=== PATIENT | male | born 1960 | race Caucasian/White ===

== ENCOUNTER 2023-08-21 02:00 | Emergency (ER) | payer MEDICARE, OTHER ==
[2023-08-21] MEDS ORDERED: Zofran 4 MG/2 ML VIAL IV ONE (02:47)
[2023-08-21] MEDS ORDERED: MORPHINE SULFATE 4 MG INJ IV ONE (02:47)
[2023-08-21 03:16] VITALS: TEMP 98.1
[2023-08-21] MEDS ORDERED: MORPHINE SULFATE 4 MG INJ ONE (03:19)
[2023-08-21] MEDS ORDERED: Zofran 4 MG/2 ML VIAL ONE (03:19)
[2023-08-21 03:20] LABS: Absolute Neutrophil Ct (ANC) 5.79 x10^3/uL (1.4-6.9); BASOPHIL % 0.7 % (0.0-0.4); Basophil (Absolute #) 0.06 x10^3/uL (0-0.4); Eosinophil % 1.9 % (0.00-5.0); Eosinophil (Absolute #) 0.15 x10^3/uL (0-0.5); Hematocrit 41.3 % (42-50); Hemoglobin 13.2 g/dL (12.5-18.0); IMMATURE GRAN # 0.03 x10^3u/L (0.00-0.03); IMMATURE GRAN % 0.4 % (0.00-0.4); Lymphocyte (Absolute #) 1.04 x10^3/uL (1.0-4.6); Lymphocytes % 12.9 % (24.0-44.0); Mean Cell Volume 92.8 fL (78-100); Mean Corpuscular Hemoglobin 29.7 pg (26-32); Mean Platelet Volume 9.1 fL (7.5-11.0); Monocytes % 12.4 % (0.0-12.0); Neutrophil % 71.7 % (36.0-66.0); Platelet Count 165 x10^3/uL (150-450); Red Blood Count 4.45 x10^6/uL (4.1-5.6); Red Cell Distribution Width 12.5 % (11.5-14.0); White Blood Count 8.1 x10^3/uL (4.0-10.5)
[2023-08-21 03:30] LABS: ALBUMIN 4.3 g/dL (3.5-5.0); ANION GAP 15.6 MEQ/L (5-15); BILIRUBIN,TOTAL 1.2 mg/dL (0.2-1.3); Calcium 9.3 mg/dL (8.4-10.2); Creatinine 1 0.69 mg/dL (0.66-1.25); EST GLOMERULAR FILTRATION RATE 104.6 ML/MIN; Potassium 4.2 mmol/L (3.5-5.1); Total Protein 7.7 g/dL (6.3-8.2)
[2023-08-21 03:55] LABS: Appearance Clear (Clear); Bacteria None Seen /HPF (None Seen); Bilirubin Negative (Negative); Blood Negative (Negative); Epithelial Cells None Seen /HPF (None Seen); Glucose, Urine 500 mg/dL (Negative); Hyaline Casts NONE SEEN /LPF (0-2); Ketones Negative (Negative); Leukocyte Esterase Negative (Negative); Nitrite Negative (Negative); Protein,Urine Dip Negative (Negative); RBC 0-2 /HPF (0-5); Urobilinogen 0.2 mg/dL (0.2); WBC 0-2 /HPF (0-5)
[2023-08-21 04:04] LABS: ADD URINE CULTURE? NO (NO)
[2023-08-21 04:40] VITALS: RESP 14
[2023-08-21 06:26] VITALS: BP 122/67; PULSE 68; O2SAT 93
--- NOTE | 2023-08-21 06:40 | ERPHSYRPT ---
- History of Present Illness Time Seen by Provider: 08/21/23 02:46 Historian: patient Exam Limitations: no limitations Patient Subjective Stated Complaint: pt states he hasnt had a bm in a few days and pressure and pain in his lower abd Triage Nursing Assessment: pt alert and oriented. answers questions approp. pt ambulates into room with slow steady gait. respirations nonlabored. skin warm and dry. abd tender in lower quads. bowel sounds present x4. Physician History: 63 years old male with history of coronary artery disease status post stenting, peripheral vascular disease with aortobifemoral stenting on 08/19 at [facility] by Dr. Palmer, discharge yesterday afternoon presented in the ER with moderate to severe lower abdominal pain with some distention. Patient reports he feels as if he needs to go have a bowel movement but cannot. Also having some difficulty urination. Denies any nausea or vomiting. No swelling in the groins at the site of incisions. No lower extremity pain. Denies having any dizziness or lightheadedness. No chest pain palpitations or shortness of breath Allergies/Adverse Reactions: No Known Drug Allergies Allergy (Verified 08/21/23 02:59) Home Medications: Unobtainable 08/21/23 [History] Hx Tetanus, Diphtheria Vaccination/Date Given: Yes Hx Influenza Vaccination/Date Given: Yes Hx Pneumococcal Vaccination/Date Given: No Immunizations Up to Date: No Travel Risk - International Travel Have you traveled outside of the country in past 3 weeks: No - Coronavirus Screening Are you exhibiting any of the following symptoms?: No Close contact with a COVID-19 positive Pt in past 14-21 Days: No - Vaccine Status Have you recieved a Covid-19 vaccination: Yes Social Worker Health Services: [facility] - Vaccination Dates Date of 2cond Vaccination (if applicable): na - Review of Systems Constitutional: No Symptoms Eyes: No Symptoms Ears, Nose, & Throat: No Symptoms Respiratory: No Symptoms Cardiac: No Symptoms Abdominal/Gastrointestinal: Abdominal Pain Genitourinary Symptoms: Urinary Retention Musculoskeletal: No Symptoms Skin: No Symptoms Neurological: No Symptoms Endocrine: No Symptoms Hematologic/Lymphatic: No Symptoms - Past Medical History Cardiac History: Coronary Artery Disease, High Cholesterol, Hypertension, Myocardial Infarction ([place]), Peripheral Vascular Disease Respiratory History: COPD Endocrine Medical History: Diabetes Type II - Past Surgical History Past Surgical History: Yes Cardiac: Cardiac Catheterization, Cardiac Stent, Vascular Surgery Other Surgical History: back surgery, ulcer - Social History Smoking Status: Former smoker Exposure to second hand smoke: No Drug Use: none Patient Lives Alone: No - Nursing Vital Signs Nursing Vital Signs: Initial Vital Signs Temperature 98.1 F 08/21/23 02:32 Pulse Rate 81 08/21/23 02:32 Respiratory Rate 18 08/21/23 02:32 Blood Pressure 129/71 08/21/23 02:32 O2 Sat by Pulse Oximetry 93 L 08/21/23 02:32 Pain Scale Pain Intensity 6 - Physical Exam General Appearance: no apparent distress, alert Eye Exam: PERRL/EOMI Ears, Nose, Throat Exam: normal ENT inspection Neck Exam: normal inspection, non-tender, supple, full range of motion Respiratory Exam: normal breath sounds, lungs clear Cardiovascular Exam: regular rate/rhythm, normal heart sounds Gastrointestinal/Abdomen Exam: normal bowel sounds, tenderness (Lower abdomen), distention, guarding Back Exam: normal inspection, normal range of motion Extremity Exam: normal inspection, normal range of motion Neurologic Exam: alert, oriented x 3, cooperative SpO2 Interpretation: normal SpO2: 93 O2 Delivery: Room Air Ordered Tests: Active Orders 24 hr Category Date Time Status Lacy [Catheter-Living[place] Lacy] STAT Care 08/21/23 03:48 Completed IV Insertion STAT Care 08/21/23 02:47 Completed NPO (ED) STAT Care 08/21/23 02:47 Completed CTA ABD/PEL W FEM RUNOFF [CT] Stat Exams 08/21/23 02:52 Ordered CBC W DIFF Stat Lab 08/21/23 03:16 Completed CMP Stat Lab 08/21/23 03:16 Completed Lactic Acid Stat Lab 08/21/23 03:09 Completed UA W/RFX UR CULTURE Stat Lab 08/21/23 03:46 Completed Medication Summary Discontinued Medications Generic Name Dose Route Start Last Admin Trade Name Freq PRN Reason Stop Dose Admin Morphine Sulfate 4 mg 08/21/23 02:47 08/21/23 03:20 Morphine Sulfate 4 Mg/Ml Injection IV 08/21/23 02:48 4 mg STAT ONE Administration Morphine Sulfate Confirm 08/21/23 03:19 Morphine Sulfate 4 Mg/Ml Injection Administered 08/21/23 03:20 Dose 4 mg .ROUTE .[facility] ONE Ondansetron HCl 4 mg 08/21/23 02:47 08/21/23 03:20 Ondansetron Hcl 4 Mg/2 Ml Vial IV 08/21/23 02:48 4 mg STAT ONE Administration Ondansetron HCl Confirm 08/21/23 03:19 Ondansetron Hcl 4 Mg/2 Ml Vial Administered 08/21/23 03:20 Dose 4 mg .ROUTE .STK-MED ONE Lab/Rad Data: Laboratory Result Diagrams 08/21/23 03:16 08/21/23 03:16 Laboratory Results 08/21/23 08/21/23 08/21/23 Range/Units 03:46 03:16 03:16 WBC 8.1 (4.0-10.5) x10^3/uL RBC 4.45 (4.1-5.6) x10^6/uL Hgb 13.2 (12.5-18.0) g/dL Hct 41.3 L (42-50) % MCV 92.8 (78-100) fL MCH 29.7 (26-32) pg MCHC 32.0 (32-36) g/dL RDW 12.5 (11.5-14.0) % Plt Count 165 (150-450) x10^3/uL MPV 9.1 (7.5-11.0) fL Gran % 71.7 H (36.0-66.0) % Immature Gran % (Auto) 0.4 (0.00-0.4) % Nucleat RBC Rel Count 0.0 (0.00-0.1) % Eos # (Auto) 0.15 (0-0.5) x10^3/uL Immature Gran # (Auto) 0.03 (0.00-0.03) x10^3u/L Absolute Lymphs (auto) 1.04 (1.0-4.6) x10^3/uL Absolute Monos (auto) 1.00 (0.0-1.3) x10^3/uL Absolute Nucleated RBC 0.00 (0.00-0.01) x10^3u/L Lymphocytes % 12.9 L (24.0-44.0) % Monocytes % 12.4 H (0.0-12.0) % Eosinophils % 1.9 (0.00-5.0) % Basophils % 0.7 (0.0-0.4) % Absolute Granulocytes 5.79 (1.4-6.9) x10^3/uL Basophils # 0.06 (0-0.4) x10^3/uL Sodium 134 L (137-145) mmol/L Potassium 4.2 (3.5-5.1) mmol/L Chloride 100 (98-107) mmol/L Carbon Dioxide 22 (22-30) mmol/L Anion Gap 15.6 H (5-15) MEQ/L BUN 18 (9-20) mg/dL Creatinine 0.69 (0.66-1.25) mg/dL Estimated GFR 104.6 ML/MIN Glucose 164 H (74-106) mg/dL Lactic Acid (0.4-2.0) Calcium 9.3 (8.4-10.2) mg/dL Total Bilirubin 1.20 (0.2-1.3) mg/dL AST 43 (17-59) U/L ALT 34 (0-50) U/L Alkaline Phosphatase 55 (38-126) U/L Serum Total Protein 7.7 (6.3-8.2) g/dL Albumin 4.3 (3.5-5.0) g/dL Urine Color Yellow (Yellow) Urine Appearance Clear (Clear) Urine pH 6.0 (4.6-8.0) Ur Specific [place] 1.010 (1.005-1.030) Urine Protein Negative (Negative) Urine Glucose (UA) 500 A (Negative) mg/dL Urine Ketones Negative (Negative) Urine Blood Negative (Negative) Urine Nitrite Negative (Negative) Urine Bilirubin Negative (Negative) Urine Urobilinogen 0.2 (0.2) mg/dL Ur Leukocyte Esterase Negative (Negative) U Hyaline Cast (Auto) NONE SEEN (0-2) /LPF Urine Microscopic RBC 0-2 (0-5) /HPF Urine Microscopic WBC 0-2 (0-5) /HPF Ur Epithelial Cells None Seen (None Seen) /HPF Urine Bacteria None Seen (None Seen) /HPF Urine Culture Reflexed NO (NO) 08/21/23 Range/Units 03:09 WBC (4.0-10.5) x10^3/uL RBC (4.1-5.6) x10^6/uL Hgb (12.5-18.0) g/dL Hct (42-50) % MCV (78-100) fL MCH (26-32) pg MCHC (32-36) g/dL RDW (11.5-14.0) % Plt Count (150-450) x10^3/uL MPV (7.5-11.0) fL Gran % (36.0-66.0) % Immature Gran % (Auto) (0.00-0.4) % Nucleat RBC Rel Count (0.00-0.1) % Eos # (Auto) (0-0.5) x10^3/uL Immature Gran # (Auto) (0.00-0.03) x10^3u/L Absolute Lymphs (auto) (1.0-4.6) x10^3/uL Absolute Monos (auto) (0.0-1.3) x10^3/uL Absolute Nucleated RBC (0.00-0.01) x10^3u/L Lymphocytes % (24.0-44.0) % Monocytes % (0.0-12.0) % Eosinophils % (0.00-5.0) % Basophils % (0.0-0.4) % Absolute Granulocytes (1.4-6.9) x10^3/uL Basophils # (0-0.4) x10^3/uL Sodium (137-145) mmol/L Potassium (3.5-5.1) mmol/L Chloride (98-107) mmol/L Carbon Dioxide (22-30) mmol/L Anion Gap (5-15) MEQ/L BUN (9-20) mg/dL Creatinine (0.66-1.25) mg/dL Estimated GFR ML/MIN Glucose (74-106) mg/dL Lactic Acid 1.1 (0.4-2.0) Calcium (8.4-10.2) mg/dL Total Bilirubin (0.2-1.3) mg/dL AST (17-59) U/L ALT (0-50) U/L Alkaline Phosphatase (38-126) U/L Serum Total Protein (6.3-8.2) g/dL Albumin (3.5-5.0) g/dL Urine Color (Yellow) Urine Appearance (Clear) Urine pH (4.6-8.0) Ur Specific [place] (1.005-1.030) Urine Protein (Negative) Urine Glucose (UA) (Negative) mg/dL Urine Ketones (Negative) Urine Blood (Negative) Urine Nitrite (Negative) Urine Bilirubin (Negative) Urine Urobilinogen (0.2) mg/dL Ur Leukocyte Esterase (Negative) U Hyaline Cast (Auto) (0-2) /LPF Urine Microscopic RBC (0-5) /HPF Urine Microscopic WBC (0-5) /HPF Ur Epithelial Cells (None Seen) /HPF Urine Bacteria (None Seen) /HPF Urine Culture Reflexed (NO) - Progress Progress: improved, re-examined Progress Note: 08/21/23 06:37 63 years old male with history of coronary artery disease status post stenting, peripheral vascular disease with aortobifemoral stenting on 08/19 at [facility] by Dr. Palmer, discharge yesterday afternoon presented in the ER with moderate to severe lower abdominal pain with some distention. Patient reports he feels as if he needs to go have a bowel movement but cannot. Also having some difficulty urination. Denies any nausea or vomiting. No swelling in the groins at the site of incisions. No lower extremity pain. Denies having any dizziness or lightheadedness. No chest pain palpitations or shortness of breath Patient is in moderate distress. He is given morphine for symptomatic relief. Distal pulses are dopplerable in both lower extremities. Cap refill symmetrical and around 3 seconds. Lower abdominal distention, Lacy catheter is placed and with initial drain of 1700 cc followed by another 1000 cc. Baseline labs are obtained which are unremarkable CBC and chemistries and no UTI. I have initially ordered CTA abdomen pelvis with femoral runoff but after placing catheter patient symptoms are all of a sudden resolved and he is ambulated in the ER without any limitation. I have tried to get hold of Dr. Vela but could not. Will leave Lacy catheter in at this urinary retention and recommended outpatient primary care follow-up and also follow-up appointment with vascular surgery. Discussed signs symptoms of worsening needing return to ER which he seems understanding. Stable for discharge. Counseled pt/family regarding: lab results, diagnosis, need for follow-up Medical Desision Making - Independent Historian Additional History obtained from: Child - Diagnostic Testing Diagnostic test were ordered, analyzed, and reviewed by me: Yes - Departure Departure Disposition: Home Clinical Impression: Postoperative urinary retention Condition: Stable Critical Care Time: No Referrals: WENCESLAO BORRERO MD [Primary Care Provider] - Follow up with PCP 1 day ROBERTO VELA [COURTESY STAFF] - Follow up/PCP as directed (Call in 1 day for reevaluation appointment) Instructions: Severe Abdominal Pain, Adult (DC), Urinary Retention (DC) Additional Instructions: Take Tylenol as needed. Follow-up with your primary care and vascular surgeon for reevaluation. Return to ER for difficulty urination or if having abdominal pain/vomiting etc.
== END 2023-08-21 06:48 | disposition home or self-care (01) ==
LOC: ED 02:00
DX: N99.89 Other postprocedural complications and disorders of genitourinary system (principal); R33.8 Other retention of urine; R10.30 Lower abdominal pain, unspecified; E78.5 Hyperlipidemia, unspecified; I10 Essential (primary) hypertension; E11.9 Type 2 diabetes mellitus without complications
CPT/HCPCS: 36000; 36415; 51702; 80053; 81001; 83605; 85025; 96374; 99284; J2270; J2405

== ENCOUNTER 2024-10-02 10:50 | Emergency (ER) | payer MEDICARE ==
--- NOTE | 2024-10-02 10:54 | ERPHSYRPT ---
- History of Present Illness Time Seen by Provider: 10/02/24 10:54 Source: patient, family Exam Limitations: no limitations Physician History: This is a 64-year-old white male patient of Dr. Delgado (PCP), Dr. Smith (customer program manager), Dr. Menezes (vascular surgery) who presents to the emergency department by private vehicle secondary to sudden onset of right lower extremity aching cramping pain with numbness that began approximately 10 AM. Patient was carrying boxes when the onset of symptoms came on. Patient has a history of right lower extremity vascular stents. In addition he has coronary disease and has a cardiac stent in place. Patient is on Plavix but not aspirin. He has a history of hypertension, hyperlipidemia, peripheral vascular disease and diabetes. He denies chest pain and he denies shortness of breath. Occurred: just prior to arrival Quality: aching, cramping Severity of Pain-Max: moderate Severity of Pain-Current: moderate Lower Extremities Pain: leg: right (Lower), thigh: right, foot: right (Lower), ankle: right Modifying Factors: Improves With: movement Associated Symptoms: other (Presents with ambulation) Allergies/Adverse Reactions: No Known Drug Allergies Allergy (Verified 10/02/24 10:54) Home Medications: Albuterol 2.5 mg/3 ml Neb [Proventil 2.5 mg/3 ml Neb] 2.5 mg IH Q6H PRN PRN 10/02/24 [History] Albuterol Sulfate [Proair Respiclick] 90 mcg IH Q6H PRN PRN 10/02/24 [History] Blood-Glucose Meter [Accu-Chek Guide Me Glucose Mtr] 1 applic IJ DAILY 10/02/24 [History] Celecoxib 100 mg [celeBREX 100 MG] 200 mg PO DAILY 10/02/24 [History] Clobetasol Propionate/Emoll [Clobetasol Emollient 0.05% Crm] 15 gm TP BID 10/02/24 [History] Clopidogrel Bisulfate [Clopidogrel] 75 mg PO DAILY 10/02/24 [History] Cyclobenzaprine HCl 10 mg [Cyclobenzaprine 10 MG] 10 mg PO DAILY PRN PRN 10/02/24 [History] Empagliflozin [Jardiance] 10 mg PO DAILY 10/02/24 [History] Evolocumab [Repatha Sureclick] 140 mg SQ UD 10/02/24 [History] Famotidine 20 mg PO DAILY 10/02/24 [History] Glimepiride 4 mg [Amaryl 4 mg] 4 mg PO DAILY 10/02/24 [History] Levothyroxine Sodium 75 Mcg [Synthroid 75 Mcg] 75 mcg PO DAILY 10/02/24 [History] Lisinopril 10 mg [Zestril 10 MG] 10 mg PO BID 10/02/24 [History] Magnesium Oxide 400 mg [Mag-Ox 400] 400 mg PO BID 10/02/24 [History] Metformin HCl [Metformin ER Osmotic] 1 tab PO BID 10/02/24 [History] Metoprolol Succinate 50 mg [Toprol Xl 50 MG] 50 mg PO DAILY 10/02/24 [History] Nitroglycerin 0.4 mg (Ed) [Nitrostat 0.4 MG (ED)] 0.4 mg SL DAILY PRN PRN 10/02/24 [History] Ranolazine 500 MG [Ranexa 500 MG] 500 mg PO BID 10/02/24 [History] Tamsulosin HCl 0.4 mg [Flomax 0.4 MG] 0.4 mg PO DAILY 10/02/24 [History] Hx Tetanus, Diphtheria Vaccination/Date Given: Yes Hx Influenza Vaccination/Date Given: Yes Hx Pneumococcal Vaccination/Date Given: No Travel Risk - International Travel Have you traveled outside of the country in past 3 weeks: No - Emerging Infectious Disease Are you exhibiting symptoms associated with any current EIDs: No - Review of Systems Constitutional: No Symptoms Eyes: No Symptoms Ears, Nose, & Throat: No Symptoms Respiratory: No Symptoms Cardiac: No Symptoms Abdominal/Gastrointestinal: No Symptoms Genitourinary Symptoms: No Symptoms Musculoskeletal: Other (Cramping and aching right lower extremity from the thigh distally) Skin: Other (Chronic venous stasis skin and changes.) Neurological: Parasthesia Psychological: No Symptoms Endocrine: No Symptoms Hematologic/Lymphatic: No Symptoms Immunological/Allergic: No Symptoms All Other Systems: Reviewed and Negative - Past Medical History Pertinent Past Medical History: Yes Cardiac History: Coronary Artery Disease, High Cholesterol, Hypertension, Myocardial Infarction ([place]), Peripheral Vascular Disease Respiratory History: COPD Endocrine Medical History: Diabetes Type II - Past Surgical History Past Surgical History: Yes Cardiac: Cardiac Catheterization, Cardiac Stent, Vascular Surgery Other Surgical History: back surgery, ulcer - Social History Smoking Status: Former smoker Exposure to second hand smoke: No Drug Use: none Patient Lives Alone: No - Nursing Vital Signs Nursing Vital Signs: Initial Vital Signs Pulse Rate 77 10/02/24 10:51 Respiratory Rate 15 10/02/24 10:51 Blood Pressure 176/88 10/02/24 10:51 O2 Sat by Pulse Oximetry 97 10/02/24 10:51 Pain Scale Pain Intensity 0 - Physical Exam General Appearance: no apparent distress, alert, anxiety, obese Eyes, Ears, Nose, Throat Exam: normal ENT inspection, moist mucous membranes Neck Exam: normal inspection, non-tender, supple, full range of motion Cardiovascular/Respiratory Exam: chest non-tender, normal breath sounds, regular rate/rhythm, heart sounds normal, no ecchymosis, no respiratory distress Gastrointestinal/Abdominal Exam: non-tender Back Exam: normal inspection, normal range of motion, No CVA tenderness, No vertebral tenderness Hips Exam: bilateral: non-tender, normal inspection, normal range of motion, no evidence of injury Legs Exam: right leg: soft tissue tenderness, left leg: non-tender, normal inspection, bilateral leg: normal range of motion, no evidence of injury Knees Exam: bilateral knee: non-tender, normal inspection, normal range of motion, no evidence of injury Ankle Exam: right ankle: soft tissue tenderness, left ankle: non-tender, normal inspection, bilateral ankle: normal range of motion, no evidence of injury Foot Exam: right foot: soft tissue tenderness, other (No dopplerable pedal pulses on the right. Dopplerable pedal pulses on the left), left foot: non- tender, bilateral foot: normal inspection, normal range of motion, no evidence of injury Neuro/Tendon Exam: normal motor functions, normal tendon functions, responds to pain Mental Status Exam: alert, oriented x 3, cooperative Skin Exam: other (Right lower extremity from approximately the mid tibial level distally is cooler on the right than the left side) SpO2 Interpretation: normal O2 Delivery: Room Air - Course Nursing assessment & vital signs reviewed: Yes Ordered Tests: Active Orders 24 hr Category Date Time Status IV Insertion STAT Care 10/02/24 12:33 Active ARTERIAL UNILAT/LTD LOWER EXT [US] Stat Exams 10/02/24 11:19 Completed CTA ABD/PEL W FEM RUNOFF [CT] Stat Exams 10/02/24 12:36 Completed CBC W DIFF Stat Lab 10/02/24 12:49 Completed CMP Stat Lab 10/02/24 12:49 Completed PROTIME WITH INR Stat Lab 10/02/24 13:00 Completed PTT Stat Lab 10/02/24 13:00 Completed Medication Summary Generic Name Dose Route Start Last Admin Trade Name Freq PRN Reason Stop Dose Admin Sodium Chloride 1,000 mls @ 100 mls/hr 10/02/24 12:45 10/02/24 12:36 Sodium Chloride 0.9% 1000 Ml IV 11/01/24 12:44 100 mls/hr .Q10H DIAMOND Administration Discontinued Medications Generic Name Dose Route Start Last Admin Trade Name Freq PRN Reason Stop Dose Admin Heparin Sodium (Beef Lung) 5,000 unit 10/02/24 12:46 10/02/24 13:15 Heparin 5000 Units/0.5 Ml 5,000 Unit/0.5 Ml Syr IV 10/02/24 12:47 5,000 unit STAT ONE Administration Heparin Sodium (Beef Lung) Confirm 10/02/24 13:14 Heparin 5000 Units/0.5 Ml 5,000 Unit/0.5 Ml Syr Administered 10/02/24 13:15 Dose 5,000 unit .ROUTE .[facility] ONE Lab/Rad Data: Laboratory Result Diagrams 10/02/24 12:49 10/02/24 12:49 Laboratory Results 10/02/24 10/02/24 10/02/24 Range/Units 13:00 12:49 12:49 WBC 7.7 (4.23-9.07) x10^3/uL RBC 4.99 (4.63-6.08) x10^6/uL Hgb 15.0 (13.7-17.5) g/dL Hct 43.8 (40.1-51.0) % MCV 87.8 (79.0-92.2) fL MCH 30.1 (25.7-32.2) pg MCHC 34.2 (32.3-36.5) g/dL RDW 12.5 (11.6-14.4) % Plt Count 157 L (163-337) x10^3/uL MPV 8.9 L (9.4-12.4) fL Gran % 75.8 H (34.0-67.9) % Immature Gran % (Auto) 0.5 H (0.001-0.429) % Nucleat RBC Rel Count 0.0 (0.00-0.2) % Eos # (Auto) 0.15 (0.04-0.54) x10^3/uL Immature Gran # (Auto) 0.04 H (0.001-0.031) x10^3u/L Absolute Lymphs (auto) 0.98 L (1.32-3.57) x10^3/uL Absolute Monos (auto) 0.64 (0.30-0.82) x10^3/uL Absolute Nucleated RBC 0.00 (0.00-0.012) x10^3u/L Lymphocytes % 12.7 L (21.8-53.1) % Monocytes % 8.3 (5.3-12.2) % Eosinophils % 1.9 (0.8-7.0) % Basophils % 0.8 (0.2-1.2) % Absolute Granulocytes 5.86 H (1.78-5.38) x10^3/uL Basophils # 0.06 (0.01-0.08) x10^3/uL PT 10.7 (9.4-12.5) SECONDS INR 0.98 (0.8-3.0) APTT 23.6 L (25.1-36.5) SECONDS Sodium 138 (135-145) mmol/L Potassium 4.5 (3.5-5.1) mmol/L Chloride 105 (98-107) mmol/L Carbon Dioxide 23 (22-30) mmol/L Anion Gap 14.5 (5-15) MEQ/L BUN 22 H (9-20) mg/dL Creatinine 0.70 (0.66-1.25) mg/dL Estimated GFR 103.5 ML/MIN Glucose 112 H (74-106) mg/dL Calcium 9.9 (8.4-10.2) mg/dL Total Bilirubin 0.50 (0.2-1.3) mg/dL AST 43 (17-59) U/L ALT 55 H (0-50) U/L Alkaline Phosphatase 68 (38-126) U/L Serum Total Protein 7.9 (6.3-8.2) g/dL Albumin 4.8 (3.5-5.0) g/dL - Progress Progress: unchanged, pain not gone completely Progress Note: 10/02/24 11:30 My medical decision making and the assignment of low to moderate complexity of this patient's medical issue today is based on review of the patient's past medical history, review the patient's medication list, reviewed patient drug allergy list, history present illness and physical findings on examination. The workup in this patient includes arterial ultrasound right lower extremity. Differential diagnosis includes but is not limited to acute ischemic limb, arterial insufficiency right limb 10/02/24 12:[address] Menezes, the patient's vascular surgeon. Dr. Menezes explained to me that in 2022 the patient underwent aortic stent placement. Dr. Menezes no longer performs lower extremity peripheral vascular interventions. He sends his patients to . He recommends me ordering a CTA of the abdomen pelvis with bilateral runoff. The radiologist interpreted the ultrasound/arterial unilateral right lower extremity study. The impression states new finding for no arterial flow throughout the right lower extremity. Suspect occlusion and more proximal pelvic vessels. 10/02/24 13:58 I requested and reviewed outside hide operative note on this patient that was performed on 08/19/[address] Fausto Palmer. Procedure performed is open exposure of right common femoral artery for delivery of endovascular prosthesis by groin incision, open exposure left common femoral artery for delivery of endovascular prosthesis by groin incision, placement of aortobiiliac [employer] Endurant 2 endograft for repair of abdominal aortic aneurysm. 10/02/24 15:20 The CTA of the abdomen pelvis with bilateral runoff was interpreted by the radiologist and I reviewed the impression. The impression states patent aortobiiliac stents. Right leg runoff demonstrates new total occlusion at the origin of the superficial femoral artery. No contrast to the trifurcation vessels. Left leg runoff minimal/mild scattered arteriosclerotic disease with focal less than 50% stenosis. 10/02/24 16:18 I interpreted the patient's laboratory data results. Based on the laboratory data results the patient does not have an acute or emergent medical issue. I spoke with [facility] vascular surgeon Dr. Montalvo. I reviewed the patient history, presenting complaint, physical findings and results of our workup. He recommends an additional 2500 units of intravenous heparin. He wants urgent transfer to [facility] emergency department. He accepts the patient in transfer Counseled pt/family regarding: diagnosis, rad results Medical Desision Making - Independent Historian Additional History obtained from: Spouse, Family - Diagnostic Testing Diagnostic test were ordered, analyzed, and reviewed by me: Yes Radiological Interpretation: Reviewed by me, Teleradiologist Report - Risk of complications The pt has a high risk of morbidity or mortality based on: Decision regarding hospitilization or escalation of hosp level of care - Departure Departure Disposition: Transfer Clinical Impression: Acute lower extremity ischemia Condition: Stable Critical Care Time: Yes Critical Care Time(excluding separately billable procedures): Critical 30-74 mi ns (55) Referrals: WENCESLAO DELGADO MD [Primary Care Provider] - Follow up/PCP as directed
[2024-10-02 11:06] VITALS: TEMP 97.7
--- NOTE | 2024-10-02 12:26 | XRAY ---
Indication: Right calf/foot numbness and pain. No pulse. Two-dimensional sonogram and color Doppler imaging major arteries right leg performed. Comparison: November 23, 2023 There is now faint attenuated flow in the common femoral artery. No flow in the remaining visualized deep femoral, superficial femoral, popliteal, posterior tibial, and dorsal pedal arteries. Impression: New finding for no arterial flow throughout right leg. Suspect occlusion in more proximal pelvic vessels. Comment: Preliminary report was given to ordering clinician.
[2024-10-02] MEDS: Sodium Chloride 0.9% 1000 ML 1,000 ML IV SCH (12:36)
[2024-10-02] MEDS ORDERED: Sodium Chloride 0.9% 1000 ML 1,000 ML ONE (12:36)
[2024-10-02 12:50] LABS: Absolute Neutrophil Ct (ANC) 5.86 x10^3/uL (1.78-5.38); BASOPHIL % 0.8 % (0.2-1.2); Basophil (Absolute #) 0.06 x10^3/uL (0.01-0.08); Eosinophil % 1.9 % (0.8-7.0); Eosinophil (Absolute #) 0.15 x10^3/uL (0.04-0.54); Hematocrit 43.8 % (40.1-51.0); IMMATURE GRAN # 0.04 x10^3u/L (0.001-0.031); IMMATURE GRAN % 0.5 % (0.001-0.429); Lymphocyte (Absolute #) 0.98 x10^3/uL (1.32-3.57); Lymphocytes % 12.7 % (21.8-53.1); Mean Cell Volume 87.8 fL (79.0-92.2); Mean Corpuscular Hemoglobin 30.1 pg (25.7-32.2); Mean Corpuscular Hgb Concent. 34.2 g/dL (32.3-36.5); Mean Platelet Volume 8.9 fL (9.4-12.4); Monocyte (Absolute #) 0.64 x10^3/uL (0.30-0.82); Monocytes % 8.3 % (5.3-12.2); Neutrophil % 75.8 % (34.0-67.9); Platelet Count 157 x10^3/uL (163-337); Red Blood Count 4.99 x10^6/uL (4.63-6.08); Red Cell Distribution Width 12.5 % (11.6-14.4); White Blood Count 7.7 x10^3/uL (4.23-9.07)
[2024-10-02 13:09] LABS: ALBUMIN 4.8 g/dL (3.5-5.0); ANION GAP 14.5 MEQ/L (5-15); BILIRUBIN,TOTAL 0.5 mg/dL (0.2-1.3); Calcium 9.9 mg/dL (8.4-10.2); Creatinine 1 0.7 mg/dL (0.66-1.25); EST GLOMERULAR FILTRATION RATE 103.5 ML/MIN; Potassium 4.5 mmol/L (3.5-5.1); Total Protein 7.9 g/dL (6.3-8.2)
[2024-10-02 13:11] LABS: INR 0.98 (0.8-3.0); PROTIME 10.7 SECONDS (9.4-12.5); PTT 23.6 SECONDS (25.1-36.5)
[2024-10-02] MEDS ORDERED: HEPARIN 5000 UNITS/0.5 ML (HIGH RISK MED) ONE ×2 (13:14→16:21)
[2024-10-02] MEDS: HEPARIN 5000 UNITS/0.5 ML (HIGH RISK MED) IV ONE ×2 (13:15→16:22)
--- NOTE | 2024-10-02 15:09 | XRAY ---
Indication: No arterial flow right leg on arterial sonogram performed earlier in day. Conventional contrast enhanced CTA abdominal aorta with bilateral runoff performed using 125 cc Isovue 370 contrast. 2-D sagittal and coronal reformatted images obtained. Comparison: CTA abdomen/pelvis exam September 13, 2023 Again anatomic variant left-sided IVC. Abdominal aorta again moderately arteriosclerotic with patent branching celiac, superior mesenteric, and inferior mesenteric arteries. Grossly stable minimal calcifications origin celiac and superior mesenteric arteries without critical stenosis/obstruction. Single patent renal artery supplies each kidney. Distal fusiform aneurysm slightly smaller measuring 5.0 x 4.7 cm in greatest axial dimension. Again patent aortobiiliac stents. Right leg runoff demonstrates patent common iliac stent. External iliac and common femoral arteries remains patent with minimal calcifications. Normal CTA appearance deep femoral artery. New finding total occlusion origin superficial femoral artery. Remaining superficial femoral, popliteal, and tibioperoneal trunk demonstrates faint contrast. No contrast in the trifurcation vessels. Left leg runoff demonstrates patent common iliac stent. Minimal calcifications in external iliac and common femoral arteries without critical stenosis. Normal CTA appearance deep femoral artery. Minimal/mild scattered arteriosclerotic disease in the distal superficial femoral artery, greatest at adductor hiatus where there is focal less than 50% stenosis. Minimal arteriosclerotic disease in the distal popliteal and distal tibioperoneal trunk. Trifurcation vessels demonstrates peroneal artery tapering off lower leg level. Only posterior tibial and attenuated anterior tibial arteries cross ankle joint to supply left foot. Noncontrasted stomach and bowel loops appear nonobstructed. Again 22.5 cm fatty hepatomegaly, 1.3 cm right adrenal adenoma, and splenic calcified granuloma. No free fluid/air. Remaining liver, gallbladder, pancreas, spleen, adrenal glands, kidneys, ureters, and bladder are unremarkable. No pathologic retroperitoneal lymphadenopathy. Lung bases demonstrates mild dependent atelectasis with again a few tiny calcified granulomas. Heart not enlarged. Osseous structures intact again with mild generative changes throughout the spine and both hips. Impression: 1. Again arteriosclerotic abdominal aorta with smaller distal AAA. Continued patent aortobiiliac stents. 2. Right leg runoff demonstrates new total occlusion origin superficial femoral artery. Little to faint contrast seen distally presumed due to reconstitution via deep branches. No contrast in trifurcation vessels. 3. Left leg runoff demonstrates minimal/mild scattered arteriosclerotic disease with focal less than 50% stenosis at level of adductor hiatus. Two-vessel runoff left foot. 4. Again anatomic variant for left-sided AVC. 5. Chronic findings including fatty hepatomegaly, right adrenal adenoma, chronic bony findings, and old granulomatous disease.
[2024-10-02 15:46] VITALS: RESP 18; O2SAT 94
[2024-10-02 16:14] VITALS: BP 119/67; PULSE 80
== END 2024-10-02 17:32 | disposition short-term general hospital (02) ==
LOC: ED 10:50
DX: I70.221 Atherosclerosis of native arteries of extremities with rest pain, right leg (principal); M79.604 Pain in right leg; I25.10 Atherosclerotic heart disease of native coronary artery without angina pectoris; Z95.5 Presence of coronary angioplasty implant and graft; Z95.828 Presence of other vascular implants and grafts; I10 Essential (primary) hypertension; E78.5 Hyperlipidemia, unspecified; E11.9 Type 2 diabetes mellitus without complications; Z79.02 Long term (current) use of antithrombotics/antiplatelets; Z79.84 Long term (current) use of oral hypoglycemic drugs; Z79.899 Other long term (current) drug therapy
CPT/HCPCS: 36415; 75635; 80053; 85025; 85610; 85730; 93926; 96374; 96376; 99285; 99291; J1644